=== PATIENT | female | born 1960 | race Hispanic/Latino ===

== ENCOUNTER 2017-11-14 23:05 | Inpatient (IN) | payer MEDICARE, MEDICAID ==
[2017-11-14 23:35] LABS: #Eosinphils 0.2 thou/uL (0.0-0.7); #Lymphocytes 1.9 thou/uL (1.20-3.40); #Monocytes 0.3 thou/uL (0.11-0.59); #Neutrophils 2.5 thou/uL (1.40-6.50); %Basophils 0.5 % (0.0-1.0); %Eosinophils 3.2 % (0.0-10.0); %Lymphocytes 38.5 % (21.0-51.0); %Monocytes 5.5 % (0.0-10.0); %Neutrophils 52.3 % (42.0-75.0); Hemoglobin 12.5 g/dL (12.0-16.0); Mean Corpuscular HGB CONC 32.3 g/dL (32.0-36.0); Mean Corpuscular Hemoglobin 31.4 pg (27.0-31.0); Platelet Count 120 thou/uL (130-400); White Blood Cell (WBC) Count 4.8 thou/uL (4.8-10.8)
[2017-11-15 00:01] LABS: ALT (SGPT) 21 U/L (8-55); AST (SGOT) 19 U/L (5-34); Alkaline Phosphatase 82 U/L (40-150); Anion Gap 11 mmol/L (10-20); BUN (Urea Nitrogen) 24 mg/dL (9.8-20.1); Bilirubin, Total 0.2 mg/dL (0.2-1.2); CK (CPK) 140 U/L (29-168); Calc. Creatinine Clearance 0 mL/min (70-130); Calcium 8.4 mg/dL (7.8-10.44); Carbon Dioxide 24 mmol/L (22-29); Chloride 104 mmol/L (98-107); Estimated GFR-MDRD 32; Globulin 3.9 g/dL (2.4-3.5); Potassium 4.5 mmol/L (3.5-5.1); Protein, Total 6.9 g/dL (6.0-8.3); Sodium 134 mmol/L (136-145)
[2017-11-15 00:04] LABS: Troponin I Less than 0.010 ng/mL (< 0.028)
[2017-11-15 00:34] LABS: Base Excess-Venous -1.6 mmol/L (-30.0-30.0); Bicarbonate (HCO3v) 26.1 mmol/L (1.0-85.0); CO2 Tension (PvCO2) 55.4 mmHg (41.0-51.0); Calcium, Ionized 1.19 mmol/L (1.12-1.32); Potassium 4.6 mmol/L (3.4-4.7); T. Carbon Dioxide 27.8 mmol/L (1.0-85.0); pH (Venous) 7.281 (7.35-7.45); vO2 Saturation-calc 72.8 % (0.0-100.0)
[2017-11-15 00:36] LABS: CKMB 10.1 ng/mL (0-6.6)
[2017-11-15 00:38] LABS: Glucose 786 mg/dL (70-105)
[2017-11-15 00:56] LABS: Bilirubin Negative (Negative); Blood, Urine Small (Negative); Clarity CLEAR (Clear); Glucose, Urine (Dipstick) >=1000 mg/dL (Negative); Leukocyte Negative (Negative); Nitrite Negative (Negative); Protein, Urine (Dipstick) 300 mg/dL (Neg-Trace); Urobilinogen 0.2 mg/dL (0.2-1.0)
[2017-11-15 00:59] LABS: Bacteria/HPF None Seen HPF (None Seen); Hyaline Casts/LPF 0-3 HYALINE CAST LPF (0-3 Hyaline); Squamous Epithelial 0-3 HPF (0-3); WBC/HPF 0-3 HPF (0-3)
[2017-11-15] MEDS ORDERED: Insulin Regular 300 UNITS/3 ML VIAL ONE (01:25)
[2017-11-15] MEDS ORDERED: hydrALAZINE 20 MG/ML VIAL ONE (01:25)
[2017-11-15] MEDS ORDERED: Ondansetron HCl/PF 4 MG/2 ML Vial ONE (02:37)
[2017-11-15] MEDS ORDERED: Ondansetron HCl/PF 4 MG/2 ML Vial IVP PRN (04:13)
[2017-11-15] MEDS ORDERED: Ondansetron ODT 4 MG TAB SL PRN (04:13)
[2017-11-15] MEDS ORDERED: Acetaminophen 325 MG TAB PO PRN (04:13)
[2017-11-15] MEDS: Sodium Chloride 0.9% 1,000 ML IV SCH ×2 (06:05→11:01)
--- NOTE | 2017-11-15 08:16 | CT ---
PRELIMINARY REPORT/[facility]/EMERGENCY AFTER HOURS PROCEDURE: EXAM: CT Head Without Intravenous Contrast CLINICAL HISTORY: 56 years old, female; Signs and symptoms; Altered mental status/memory loss; Confusion or disorientat ion; Patient HX: 56yo female brought to er by ems. Family states they saw her shaking and fell to the floor. Reports controlled fall and did not hit head. Reports being normal and eating dinner. Unawar e if she took her insulin. Ems reports the was on the floor with decreased mental status. Reports d stick reading high. Family denies any recent illness. TECHNIQUE: Axial computed tomography images of the head/brain without intravenous contrast. COMPARISON: No relevant prior studies available. FINDINGS: No definite acute skull fracture. Included paranasal sinuses are essentially clear. No acute intracranial hemorrhage or mass effect. Ventricle size is normal for age. Vascular calcifications noted in the internal carotid and vertebral basilar systems. There is mild, relatively symmetrical decreased attenuation in the periventricular white matter, like ly from microvascular disease. No definite acute infarct by CT. MRI could be more sensitive/specific for an acute infarct if clinically indicated. IMPRESSION: No acute intracranial bleed or mass effect. Changes of microvascular disease. No definite acute infarct by CT, see above. Thank you for allowing us to participate in the care of your patient. Dictated and Authenticated by: Thomas Goldstein MD 11/15/2017 1:37 AM Central Time ([place] & [place]) FINAL REPORT CT BRAIN WITHOUT CONTRAST: Date: 11/15/17 FINDINGS/IMPRESSION: I agree with the preliminary report given by Dr. Thomas Goldstein of [facility]. POS: [facility]
--- NOTE | 2017-11-15 09:03 | RAD ---
CHEST 1 VIEW: Date: 11/14/17 HISTORY: Hyperglycemia. COMPARISON: 04/03/17. FINDINGS: Portable upright chest demonstrates a diminished lung volume. Calcified granuloma in the right mid tita ng is again noted. No masses or consolidation. No pleural effusion. Normal cardiac silhouette. No pne umothorax or osseous abnormalities. IMPRESSION: No acute cardiopulmonary process. POS: [facility]
[2017-11-15] MEDS ORDERED: Lorazepam 2 MG/ML VIAL SLOW IVP PRN (11:10)
[2017-11-15] MEDS ORDERED: Dextrose 5% in Water 1,000 ML IV PRN (11:10)
[2017-11-15] MEDS ORDERED: HumaLOG 300 UNITS/3 ML VIAL SC PRN (11:10)
[2017-11-15] MEDS ORDERED: Dextrose 50% Abboject 50 ML SYRINGE SLOW IVP PRN (11:10)
[2017-11-15] MEDS ORDERED: Guaifenesin DM 100-10/5 ML UDCUP PO PRN (11:10)
[2017-11-15] MEDS ORDERED: Senokot 8.6 MG TAB PO PRN (11:10)
--- NOTE | 2017-11-15 12:03 | HP ---
REASON FOR ADMISSION: Grand mal seizure, uncontrolled diabetes mellitus type 2. HISTORY OF PRESENTING ILLNESS: Please note the majority of this history is obtained by talking to patient's sisters, two of them at bedside, ER records, and prior medical records as patient does not recall what happened exactly yesterday. Per sister who lives with the patient, patient was trying to get up from a chair and passed out. She was shaking prior to passing out. The patient was shaking all 4 extremities. She was also drooling saliva. This lasted for nearly 10-15 minutes. They tried to wake her up in between, but patient was unresponsive. They called EMS and patient was brought to emergency room. On arrival, the patient had serum glucose levels 786 and a prolactin of nearly 36 nanograms per mL. Her initial CT brain did not reveal any acute abnormality. Per family members here, patient was normal up until this event yesterday. They also say that she is very compliant with her insulins. They did not give her insulin if her fingerstick glucose is less than 200 mg because she has a tendency to going to hypoglycemia. She normally ambulates by herself. Her mentation is slow from and they do not leave her unattended in the house. PAST MEDICAL AND SURGICAL HISTORY: History of diabetes mellitus type 2, obesity , chronic lower extremity edema, hypertension, history of carpal tunnel surgery on both hands, lumbar spine surgery x2 in 2011, cholecystectomy, left great toe amputation. CURRENT MEDICATIONS: Please note patient does not recall any of her medications per prior records here, patient is on Coreg 25 mg twice daily, Pepcid 20 mg daily, Levemir 40 units subcu daily and 20 units subcu q.p.m., losartan with hydrochlorothiazide 100/25 mg p.o. daily. ALLERGIES: No known drug allergies. PERSONAL HISTORY: Does not abuse alcohol or drugs. No history of smoking. FAMILY HISTORY: Mother at the age of 50 years. She has had history of [place] and during a gallbladder surgery. Father of old age at the age of 75 years. The patient goes to [facility] on [address] [place] [address] We will try to obtain all of her medications from there. REVIEW OF SYSTEMS: The following complete review of systems was negative, unless otherwise mentioned in the HPI or below: Constitutional: Weight loss or gain, ability to conduct usual activities. Skin: Rash, itching. Eyes: Double vision, pain. ENT/Mouth: Nose bleeding, neck stiffness, pain, tenderness. Cardiovascular: Palpitations, dyspnea on exertion, orthopnea. Respiratory: Shortness of breath, wheezing, cough, hemoptysis, fever or night sweats. Gastrointestinal: Poor appetite, abdominal pain, heartburn, nausea, vomiting, constipation, or diarrhea. Genitourinary: Urgency, frequency, dysuria, nocturia. Musculoskeletal: Pain, swelling. Neurologic/Psychiatric: Anxiety, depression. Allergy/Immunologic: Skin rash, bleeding tendency. PHYSICAL EXAMINATION: GENERAL: The patient is a 56-year-old female who is currently not in any acute distress. VITAL SIGNS: Blood pressure 144/66, pulse 84 per minute, respiratory rate 20 per minute, temperature 98.1 degrees Fahrenheit, and saturating 95% on room air. NECK: Supple, no elevated JVD. EYES: Extraocular muscles intact. Pupils reacting to light. ORAL CAVITY: Mucous membranes are moist. No exudates or congestion. CARDIOVASCULAR SYSTEM: S1, S2 heard. Regular rhythm. RESPIRATORY SYSTEM: Air entry 1+ bilaterally. No rales or rhonchi. ABDOMEN: Soft, bowel sounds heard. No tenderness, rigidity or guarding. EXTREMITIES: There is 2+ peripheral edema, no calf tenderness. The patient has mild erythema on the medial aspect of the left leg and thigh area. There is no fluctuation seen, although there is 2+ peripheral edema: Peripheral pulses are 1+ bilateral. No ischemic ulcers or gangrene. CENTRAL NERVOUS SYSTEM: The patient moves all 4 extremities and is at her baseline cognitive status which was confirmed with two sisters at bedside. She responds well to questions. She verbalizes well. PSYCHIATRIC SYSTEM: No obvious hallucinations or delusions. IMAGING DATA AND LABORATORY DATA: EKG on telemetry shows sinus rhythm at 94 beats per minute. White count of 4, hemoglobin and hematocrit 12 and 38, platelet count 120, MCV is 97 with 52% neutrophils. Venous blood gas showed pH of 7.28, pCO2 was 55, bicarbonate was 26 on the blood gas. Sodium 138, potassium 4.6, serum glucose was 786, BUN 24, creatinine 1.65. Her fingerstick glucose has come down to 254 around 5 a.m. Troponin I was within normal limits. CK level is 140, albumin is 3.0. Prolactin is 36. CT brain done showed no acute intracranial abnormalities. Chest x-ray done showed no acute cardiopulmonary abnormalities. CLINICAL IMPRESSION AND PLAN: The patient will be admitted to medical floor for an episode of what appears to be grand mal seizure. The family informed me that she has had 2 such episodes in the past, one was a blank staring episode, this was almost 6-7 months back and another episode prior to that where she was shaking like yesterday. They also mentioned that her fingerstick glucose was 148 when all of this happened. She will be on Levemir 20 units subcu twice daily and Keppra 500 mg p.o. twice daily. The patient also appears to have some mild left lower extremity cellulitis and we will place her on Keflex 500 mg p.o. 4 times daily. We will continue her Coreg and Hyzaar as before. We will try to obtain her home medication list from her pharmacy in [facility] on [id number] Tom was is director alumni relations for Neurology will be consulted as well. The patient will have EEG to confirm the findings apart from the elevated prolactin levels with witnessed grand mal episode last evening. MARINA
[2017-11-15] MEDS: Cephalexin 250 MG CAP PO SCH ×3 (12:28→20:43)
[2017-11-15] MEDS: HumaLOG 300 UNITS/3 ML VIAL SC PRN ×2 (12:28→16:36)
[2017-11-15] MEDS: Acetaminophen 325 MG TAB PO PRN (12:28)
[2017-11-15] MEDS ORDERED: Carvedilol 25 MG TAB PO SCH (13:15)
[2017-11-15] MEDS ORDERED: Losartan/Hydrochlorothiazide 100 mg/25 mg Tablet PO SCH (13:15)
--- NOTE | 2017-11-15 13:56 | RAD ---
RIGHT HAND 3 VIEWS: HISTORY: Fall with hand pain. FINDINGS: There are arthritic changes of the hand and wrist. There are no signs of fracture or dislocation. IMPRESSION: No evidence of fracture. POS: [facility]
--- NOTE | 2017-11-15 14:00 | RAD ---
RIGHT FOREARM 3 VIEWS: Date: 11/15/17 HISTORY: Fall with forearm pain. FINDINGS: Vascular calcifications are seen. No signs of fracture or dislocation. There is some soft tissue swel ling seen on the dorsum of the wrist. IMPRESSION: No evidence of fracture. POS: [facility]
[2017-11-15] MEDS ORDERED: Furosemide 40 MG/4 ML VIAL SLOW IVP SCH (17:45)
--- NOTE | 2017-11-15 17:46 | CON ---
DATE OF CONSULTATION: 11/15/2017 CONSULTING PHYSICIAN: Hospitalist Service. IMPRESSION: 1. Recurrent seizures. 2. Diabetes with marked hyperglycemia. 3. Hypertension. PLAN: 1. Keppra 500 mg twice a day. 2. Office followup. HISTORY OF PRESENT ILLNESS: Ms. Demarco is a 56-year-old woman, who has a past history of a seizure t hat was worked up last year. It was elected not to start her on medication at that time. She presen topher again with prolonged generalized seizure that was witnessed by family. On arrival, her blood sug ar was over 700. She does not recall any of the events from home to her arrival in the emergency [facility]. She had an EEG done, which did not reveal any ongoing epileptiform activity. I was called to rishi huynh a neurologic opinion. PAST MEDICAL HISTORY: As listed above. ALLERGIES: As per chart. SOCIAL HISTORY: No tobacco or alcohol use. FAMILY HISTORY: Noncontributory. REVIEW OF SYSTEMS: No complaint of headache, nausea, vomiting, or vertigo. Positive for tingling on the right arm and leg yesterday. PHYSICAL EXAMINATION: GENERAL: She is slightly overweight middle-aged woman sitting in bed, in no distress. VITAL SIGNS: Stable. She is afebrile. HEENT: Pupils equal and reactive. Conjunctivae clear. Oropharynx is clear. No tongue trauma was p resent. NECK: Supple. EXTREMITIES: There are some amputated toes on the left foot. NEUROLOGIC: She is alert and cooperative. Her speech is fluent and clear. Cranial nerves II throug h XII are intact. Motor strength was symmetric. Sensation was intact to light touch. Gait was not tested. No abnormal movements were seen. EKG: Normal sinus rhythm. SUMMARY: Given recurrent prolonged seizure activity, I would go ahead and start her on Keppra. I wi ll be happy to follow up with her as an outpatient.
[2017-11-15] MEDS: Carvedilol 25 MG TAB PO SCH (20:43)
[2017-11-15] MEDS: Insulin Detemir 100 UNITS/ML 20 UNITS in Pre-Filled Syringe 1 EACH SC SCH (20:44)
[2017-11-15] MEDS: Famotidine 20 MG TAB PO SCH (20:44)
[2017-11-15] MEDS: levETIRAcetam 500 MG TAB PO SCH (20:44)
[2017-11-15] MEDS ORDERED: levETIRAcetam 500 MG TAB PO SCH (21:00)
[2017-11-16 05:21] LABS: #Eosinphils 0.2 thou/uL (0.0-0.7); #Lymphocytes 2.1 thou/uL (1.20-3.40); #Monocytes 0.3 thou/uL (0.11-0.59); #Neutrophils 2.9 thou/uL (1.40-6.50); %Basophils 0.7 % (0.0-1.0); %Eosinophils 3.4 % (0.0-10.0); %Lymphocytes 37.2 % (21.0-51.0); %Monocytes 5.9 % (0.0-10.0); %Neutrophils 52.8 % (42.0-75.0); Hemoglobin 11.1 g/dL (12.0-16.0); Mean Corpuscular HGB CONC 32.8 g/dL (32.0-36.0); Mean Corpuscular Hemoglobin 31.5 pg (27.0-31.0); Mean Corpuscular Volume 96.1 fl (81.0-99.0); Mean Platelet Volume 9.9 fL (7.4-10.4); Platelet Count 113 thou/uL (130-400); RBC Distribution Width 12.2 % (11.5-14.5); Red Blood Cell (RBC) Count 3.52 mill/uL (4.20-5.40); White Blood Cell (WBC) Count 5.5 thou/uL (4.8-10.8)
[2017-11-16 05:32] LABS: Anion Gap 7 mmol/L (10-20); BUN (Urea Nitrogen) 26 mg/dL (9.8-20.1); Calc. Creatinine Clearance 61 mL/min (70-130); Calcium 8.4 mg/dL (7.8-10.44); Carbon Dioxide 26 mmol/L (22-29); Chloride 109 mmol/L (98-107); Estimated GFR-MDRD 43; Glucose 187 mg/dL (70-105); Potassium 3.6 mmol/L (3.5-5.1); Sodium 138 mmol/L (136-145)
[2017-11-16 07:19] VITALS: BMI 27.6
--- NOTE | 2017-11-16 09:29 | EEG ---
Referring Physician: LACIE EEG # [id number] TEST TYPE: ROUTINE PORTABLE INPATIENT REPORT: AN EEG USING THE INTERNATIONAL ELECTRODE PLACEMENT SYSTEM WAS PERFORMED. The waking background is a 9-10 hertz alpha frequency. The patient became drowsy during the study. Photic stimulation and hyperventilation were unremarkable. No epileptiform features were seen. IMPRESSION: THIS IS A NORMAL AWAKE AND DROWSY EEG. Front Worker: GERARD Sanitation Associate: ANDRA.MARIFER GRAY
[2017-11-16] MEDS: Cephalexin 250 MG CAP PO SCH ×4 (09:41→21:33)
[2017-11-16] MEDS: levETIRAcetam 500 MG TAB PO SCH ×2 (09:41→20:27)
[2017-11-16] MEDS: Carvedilol 25 MG TAB PO SCH ×2 (09:41→20:28)
[2017-11-16] MEDS: Enoxaparin Sodium 40 MG/0.4 ML SYRINGE SC SCH (09:41)
[2017-11-16] MEDS: Insulin Detemir 100 UNITS/ML 20 UNITS in Pre-Filled Syringe 1 EACH SC SCH ×2 (09:42→20:28)
[2017-11-16] MEDS: HumaLOG 300 UNITS/3 ML VIAL SC PRN ×2 (09:43→12:26)
[2017-11-16] MEDS: Losartan/Hydrochlorothiazide 100 mg/25 mg Tablet PO SCH (10:06)
[2017-11-16] MEDS: Acetaminophen 325 MG TAB PO PRN (12:19)
[2017-11-16] MEDS ORDERED: hydrALAZINE 20 MG/ML VIAL SLOW IVP SCH (13:15)
[2017-11-16] MEDS ORDERED: HumaLOG 300 UNITS/3 ML VIAL SC PRN (13:59)
[2017-11-16] MEDS ORDERED: Dextrose 5% in Water 1,000 ML IV PRN (13:59)
[2017-11-16] MEDS ORDERED: Dextrose 50% Abboject 50 ML SYRINGE SLOW IVP PRN (13:59)
--- NOTE | 2017-11-16 14:02 | PDOC.PN ---
- Subjective Encounter Start Date: 11/16/17 Encounter Start Time: 12:45 Subjective: pt up in bed no complains. family at bedside - Objective Resuscitation Status: Resuscitation Status FULL:Full Resuscitation Vital Signs & Weight: Vital Signs (12 hours) Temp Pulse Resp BP Pulse Ox 11/16/17 13:40 67 11/16/17 12:15 97.8 F 67 16 178/74 H 95 11/16/17 08:29 97.5 F L 73 18 135/61 94 L 11/16/17 08:15 97.5 F L 73 18 11/16/17 03:17 98.3 F 70 16 123/60 96 Weight Admit Weight 172 lb 1.6 oz Weight 176 lb 9.6 oz I&O: 11/15/17 11/16/17 11/17/17 06:59 06:59 06:59 Intake Total 150 360 Output Total 100 Balance 50 360 Result Diagrams: 11/16/17 04:04 11/16/17 04:04 Additional Labs: Accuchecks 11/16/17 11/16/17 11/15/17 11:19 05:51 19:43 POC Glucose 222 H 195 H 273 H 11/15/17 15:24 POC Glucose 284 H Phys Exam - Physical Examination HEENT: PERRLA Respiratory: no wheezing, no rales, clear to auscultation bilateral Cardiovascular: RRR, no significant murmur Gastrointestinal: soft, non-tender Musculoskeletal: edema present (pt's left toe is amputated and has a old scar, no redness noted to bilateral lower ext) Neurological: non-focal Psychiatric: normal affect, A&O x 3 Dx/Plan (1) Seizure Code(s): R56.9 - UNSPECIFIED CONVULSIONS Status: Acute Plan: pt had EEG which was normal, neurology has seen the pt and put her on keppra. she will follow up with neurology as outpatient. pt does not drive. (2) HTN (hypertension) Code(s): I10 - ESSENTIAL (PRIMARY) HYPERTENSION Status: Chronic Plan: uncontrolled, pt on 3 medication will continue to monitor if her blood pressure continues to be high will add additional medication. 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 -: will need diabetic teaching -: will increase short acting dose and continue current lantus dose * .
[2017-11-16] MEDS: Famotidine 20 MG TAB PO SCH (20:27)
[2017-11-17] MEDS: Losartan/Hydrochlorothiazide 100 mg/25 mg Tablet PO SCH (10:27)
[2017-11-17] MEDS: levETIRAcetam 500 MG TAB PO SCH ×2 (10:27→20:03)
[2017-11-17] MEDS: Cephalexin 250 MG CAP PO SCH ×4 (10:27→20:03)
[2017-11-17] MEDS: Enoxaparin Sodium 40 MG/0.4 ML SYRINGE SC SCH (10:28)
[2017-11-17] MEDS: Carvedilol 25 MG TAB PO SCH ×2 (10:28→20:03)
[2017-11-17] MEDS: Insulin Detemir 100 UNITS/ML 20 UNITS in Pre-Filled Syringe 1 EACH SC SCH ×2 (10:33→20:04)
[2017-11-17] MEDS: Fioricet 325/50/40 mg Tablet PO PRN (12:45)
[2017-11-17] MEDS ORDERED: Meclizine HCl 12.5 MG TAB PO PRN (15:10)
--- NOTE | 2017-11-17 16:57 | MRI ---
EXAM: BRAIN MRI WITHOUT CONTRAST 11/17/17 COMPARISON: 04/04/17. HISTORY: Dizziness and frontal headaches since Faisal. TECHNIQUE: Brain MRI is performed without intravenous gadolinium administration. Multisequential, multiplanar im aging is performed. FINDINGS: No hemorrhage on the axial gradient echo sequence. No parenchymal mass, mass effect or midline shift. Brain volume is age appropriate. Cortical villeda-white matter differentiation is preserved. Ventricle and sulci are patent and symmetric. Central arterial flow voids are maintained. Absent restricted diffusion. T2 and FLAIR white matter hy perintensity in a periventricular distribution may be due to chronic small vessel ischemic change. Calvarium has a normal narrow signal intensity. Midline brain parenchymal structures are unremarkable . IMPRESSION: 1. No significant change when compared to the examination performed April 2017. Age appropriate b rain volume. 2. Absent restricted diffusion. No acute infarct. POS: [facility]
[2017-11-17] MEDS ORDERED: hydrALAZINE 20 MG/ML VIAL SLOW IVP PRN (17:23)
--- NOTE | 2017-11-17 17:27 | PDOC.PN ---
- Subjective Encounter Start Date: 11/17/17 Encounter Start Time: 13:30 Subjective: pt up in bed complaining of dizziness and headache - Objective Resuscitation Status: Resuscitation Status FULL:Full Resuscitation Vital Signs & Weight: Vital Signs (12 hours) Temp Pulse Pulse Pulse Pulse Pulse Pulse 11/17/17 16:50 97.9 F 60 11/17/17 12:13 65 11/17/17 11:35 68 64 71 72 67 11/17/17 11:26 97.8 F 67 11/17/17 08:00 97.8 F 67 Pulse Resp BP BP BP BP BP 11/17/17 16:50 16 11/17/17 12:13 16 11/17/17 11:35 65 165/70 H 154/65 H 149/68 H 134/71 134/75 11/17/17 11:26 16 11/17/17 08:00 16 BP BP Pulse Ox Pulse Ox Pulse Ox Pulse Ox Pulse Ox 11/17/17 16:50 186/73 H 97 11/17/17 12:13 134/71 97 11/17/17 11:35 166/72 H 97 98 96 98 11/17/17 11:26 149/81 H 98 11/17/17 08:00 182/75 H 98 Pulse Ox Pulse Ox 11/17/17 16:50 11/17/17 12:13 11/17/17 11:35 98 97 11/17/17 11:26 11/17/17 08:00 Weight Admit Weight 172 lb 1.6 oz Weight 177 lb 12.8 oz I&O: 11/16/17 11/17/17 11/18/17 06:59 06:59 06:59 Intake Total 360 1150 400 Output Total 425 Balance 360 725 400 Result Diagrams: 11/16/17 04:04 11/16/17 04:04 Additional Labs: Accuchecks 11/17/17 11/17/17 11/16/17 10:33 04:44 20:13 POC Glucose 135 H 109 161 H Phys Exam - Physical Examination HEENT: PERRLA Neck: no nodes Respiratory: no wheezing, no rales Cardiovascular: RRR, no significant murmur Gastrointestinal: soft, non-tender Psychiatric: A&O x 3 (pt has flat affect) Skin: no rash Dx/Plan (1) Seizure Code(s): R56.9 - UNSPECIFIED CONVULSIONS Status: Acute Plan: on keppra (2) HTN (hypertension) Code(s): I10 - ESSENTIAL (PRIMARY) HYPERTENSION Status: Chronic Plan: rae sorian added also bb added (3) Diabetes mellitus Code(s): E11.9 - TYPE 2 DIABETES MELLITUS WITHOUT COMPLICATIONS Status: Acute Qualifiers: Diabetes mellitus type: type 2 Diabetes mellitus complication status: with kidney complications Diabetes mellitus complication detail: with chronic kidney disease 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 will get home health. (4) Dizziness Code(s): R42 - DIZZINESS AND GIDDINESS Status: Acute Plan: pt unable to describe in details, just states she is dizzy. she has had a MRI and echo done few months back. given pt's hx of uncontrolled dm and htn will get MRi. negative orthostatic.will add meclizine - Plan * .
[2017-11-17] MEDS: Famotidine 20 MG TAB PO SCH (20:03)
[2017-11-18 05:58] VITALS: TEMP 98
[2017-11-18 07:55] VITALS: BP 118/56
[2017-11-18] MEDS: Carvedilol 25 MG TAB PO SCH (08:34)
[2017-11-18] MEDS: levETIRAcetam 500 MG TAB PO SCH (08:35)
[2017-11-18] MEDS: Losartan/Hydrochlorothiazide 100 mg/25 mg Tablet PO SCH (08:35)
[2017-11-18] MEDS: Cephalexin 250 MG CAP PO SCH (08:36)
[2017-11-18] MEDS: Enoxaparin Sodium 40 MG/0.4 ML SYRINGE SC SCH (08:36)
[2017-11-18] MEDS: Insulin Detemir 100 UNITS/ML 20 UNITS in Pre-Filled Syringe 1 EACH SC SCH (08:36)
[2017-11-18] MEDS: Fioricet 325/50/40 mg Tablet PO PRN (08:40)
[2017-11-18] MEDS ORDERED: Amlodipine 5 MG TAB PO SCH (09:00)
--- NOTE | 2017-11-18 14:14 | DIS ---
DATE OF ADMISSION: 11/15/2017 DATE OF DISCHARGE: 11/18/2017 DISCHARGE DIAGNOSIS: Seizure, possible new onset; however, patient has had seizures. SECONDARY DIAGNOSES: 1. Diabetes, uncontrolled. 2. Hypertension, uncontrolled. HOSPITAL COURSE: The patient is a very pleasant 56-year-old female with past medical history of diab etes, hypertension, obesity, who initially came in to the hospital for seizure. The patient underwen t a CAT scan which initially was negative. The patient was seen by Neurology and was put on Keppra 5 00 mg b.i.d. and was asked to follow up as an outpatient. She also had an EEG which was negative. H owever, when she was in the hospital, she did have complaints of headache and dizziness given her his tory of diabetes which is uncontrolled and hypertension. An MRI brain was ordered which was negative . Also her new medication Norvasc was added to her blood pressure medication given her labile blood pressure. Significant education in regard to diabetes was discussed with the patient's sister who li ves with her about writing sugars down and also writing her blood pressure down and taking it to the PCP. Since the patient has been skipping night insulin, her sugars were really hard to control in [facility]. We will change her insulin regime and she can follow up with PCP and Neurology as outpat ient. The patient was advised against driving, which she does not drive. DISCHARGE MEDICATIONS: Are as the following: Keppra 500 mg p.o. b.i.d., Norvasc 10 mg daily, 4 unit s of Levemir in the morning and 5 units of Levemir in the evening. She will continue her home medica tions which is hydrochlorothiazide and losartan 1 p.o. daily. She will continue Pepcid p.o. twice a day. She will continue her Coreg 25 mg b.i.d. Recommend to check a hemoglobin A1c as an outpatient.
== END 2017-11-18 11:31 | disposition home health service (06) | DRG 101 ==
LOC: ERS 23:05 → 2NO 11-15 03:07 → T4-A 11-16 13:52
PROVIDERS: ADMIT Internal Medicine Infectious Disease; ATTEND Internal Medicine Infectious Disease
DX: G40.409 Other generalized epilepsy and epileptic syndromes, not intractable, without status epilepticus (principal); E11.22 Type 2 diabetes mellitus with diabetic chronic kidney disease; L03.116 Cellulitis of left lower limb; I12.9 Hypertensive chronic kidney disease with stage 1 through stage 4 chronic kidney disease, or unspecified chronic kidney disease; N18.2 Chronic kidney disease, stage 2 (mild); R42 Dizziness and giddiness; Z79.4 Long term (current) use of insulin; E11.65 Type 2 diabetes mellitus with hyperglycemia; Z89.412 Acquired absence of left great toe
CPT/HCPCS: 36415; 36416; 70450; 70551; 71045; 80048; 80053; 81003; 81015; 82010; 82330; 82435; 82553; 82803; 84132; 84146; 84295; 84443; 84484; 85014; 85025; 85652; 94760; 95816; 95819; 96361; 96374; 96375; A4216; G8978-GP-CK; G8979-GP-CI; J0360; J1650; J1815; J1940; J2405

== ENCOUNTER 2018-02-07 17:02 | Emergency (ER) | payer MEDICAID, MEDICARE ==
[2018-02-07] MEDS ORDERED: Adacel (T-DAP) 0.5 ML VIAL ONE (17:55)
== END 2018-02-07 18:17 | disposition home or self-care (01) ==
LOC: ERS 17:02
DX: S61.215A Laceration without foreign body of left ring finger without damage to nail, initial encounter (principal); I10 Essential (primary) hypertension; E11.9 Type 2 diabetes mellitus without complications; Z79.899 Other long term (current) drug therapy; W26.0XXA Contact with knife, initial encounter
CPT/HCPCS: 90471; 90715